=== PATIENT | female | born 1970 | race African-American/Black ===

== ENCOUNTER 2021-06-03 16:09 | Emergency (ER) | payer BC ==
[~2021-06-03] VITALS: Ht 157.5 cm; Wt 79.4 kg
[2021-06-03 16:09] VITALS: BP 145/86
[2021-06-03] MEDS ORDERED: ZANAFLEX4 MG PO (16:57)
[2021-06-03] MEDS ORDERED: MOBIC7.5 MG PO (16:57)
[2021-06-03] MEDS ORDERED: HYDROCHLOROTHIA25 M1 PO (17:08)
== END 2021-06-03 17:09 | disposition home or self-care (01) ==
LOC: ER 16:09
DX: M25.511 Pain in right shoulder (principal)